=== PATIENT | female | born 1965 ===

== ENCOUNTER 2018-08-26 06:31 | Day surgery (SDC) | payer BC, OTHER ==
[2018-08-25 11:50] VITALS: BMI 24.9
[2018-08-26] MEDS ORDERED: DEXAMETHASONE SOD PHOSPHATE 4 MG/1 ML VIAL ONE ×2 (07:32→09:30)
[2018-08-26] MEDS ORDERED: LIDOCAINE HCL 1%, 10 MG/ML (20ML VIAL) ONE (07:33)
[2018-08-26] MEDS ORDERED: BACITRACIN 15 GM TUBE TOPICAL OINTMENT ONE (07:33)
[2018-08-26] MEDS ORDERED: BUPIVACAINE HCL/PF 0.5% (5MG/ML) 10 ML VIAL ONE (07:33)
[2018-08-26] MEDS ORDERED: MIDAZOLAM HCL 2 MG/2 ML SINGLE DOSE VIAL ONE ×3 (08:07)
[2018-08-26] MEDS ORDERED: ceFAZolin SODIUM 1 GM VIAL IVPB ONE (08:10)
[2018-08-26] MEDS ORDERED: SUCCINYLCHOLINE CHLORIDE 200 MG/10 ML VIAL ONE (08:14)
[2018-08-26] MEDS ORDERED: PROPOFOL 20 ML ONE ×2 (08:14)
[2018-08-26] MEDS ORDERED: LIDOCAINE HCL 1%, 10 MG/ML (50 mL VIAL) IJ ONE ×2 (08:19→08:38)
[2018-08-26] MEDS ORDERED: BUPIVACAINE HCL/PF (5 MG/ML) 30 ML VIAL IJ ONE ×2 (08:19→09:27)
[2018-08-26] MEDS ORDERED: BENZOIN TINCTURE SWABSTICK TP ONE (09:11)
[2018-08-26] MEDS ORDERED: DEXAMETHASONE SOD PHOSPHATE 4 MG/1 ML VIAL NR ONE (09:27)
[2018-08-26] MEDS ORDERED: ceFAZolin SODIUM 1 GM VIAL ONE (09:30)
[2018-08-26] MEDS ORDERED: KETOROLAC TROMETHAMINE 30 MG/1 ML VIAL ONE (09:30)
[2018-08-26] MEDS ORDERED: LIDOCAINE HCL/PF 2% SDV 5ML VIAL ONE (09:30)
[2018-08-26 10:39] VITALS: TEMP 97.5
[2018-08-26 11:43] VITALS: BP 135/77; PULSE 77
[2018-08-26] MEDS ORDERED: ONDANSETRON 4 MG/2 ML VIAL IVPUSH PRN (12:19)
[2018-08-26] MEDS ORDERED: PROMETHAZINE HCL 25 MG/1 ML VIAL IVPB PRN (12:19)
[2018-08-26] MEDS ORDERED: oxyCODONE HCL 5 MG TABLET PO PRN (12:19)
[2018-08-26] MEDS ORDERED: LACTATED RINGERS SOLUTION 1,000 ML IV SCH (12:30)
--- NOTE | 2018-08-26 15:47 | OP ---
Operative Note - Note: Operative Date: 08/26/18 Pre-Operative Diagnosis: Mild Hallux Valgus with tender DME Right, Painful hammer toes 2&5 right, Tender lateral eminenceon tailors bunion right. Operation: 1. Modified Cazares bunionectomy right. 2. Arthroplasty PIPJ 2&5 right. 3. Tailors bunionectomy/exostectomy 5th metatrsal head. 4. Exostecomy 2nd toe right medial aspect at arthroplasty site Findings: Hypertrophic bone and soft tissue. Post-Operative Diagnosis: Same as Pre-op Surgeon: Harrison Le System Operator: Joesph Baltazar Anesthesia: Local, MAC Estimated Blood Loss (mls): 10 Operative Report Dictated: No
--- NOTE | 2018-08-29 16:18 | PATH ---
Surgical Pathology Report Patient Name: ODALIS SALAZAR [facility]. Rec. #: [id number] /Age/Gender: 1965 (Age: 53) / F Account: [id number] Location: [facility] Taken: 08/26/2018 Received: 08/26/2018 Reported: 08/29/2018 Physicians: Harrisno Le DPM Specimen(s) Received A: RIGHT TAILORS BUNION B: RIGHT HAMMER TOE 2ND AND 5TH DIGI C: RIGHT FOOT BUNION Clinical History Right foot bunion, Kaylah bunion right foot, hammertoes second and fifth digits Final Diagnosis A. RIGHT TAILOR'S BUNION, EXCISION: CARTILAGE CAPPED BONE WITH DEGENERATIVE CHANGE. B. RIGHT HAMMER TOES SECOND AND FIFTH DIGITS, EXCISION: BONE WITH FATTY MARROW AND CARTILAGINOUS TISSUE SHOWING DEGENERATIVE CHANGE. SEPARATE SEGMENTS OF ACRAL SKIN WITH NO DIAGNOSTIC ABNORMALITIES. C. RIGHT FOOT BUNION, EXCISION: BONE WITH FATTY MARROW, SYNOVIAL AND CARTILAGINOUS TISSUE SHOWING DEGENERATIVE CHANGE. Electronically Signed Bri Whitfield M.D. Gross Description A. Received in formalin labeled "right Kaylah's bunion," are 3 bateman, irregular portions of bone and soft tissue ranging from 0.4-1.3 cm in greatest dimension. The specimens are submitted in toto in one cassette, following decalcification. B. Received in formalin labeled "right hammertoes second and fifth digits," are 2 bateman, irregular portions of bone averaging 1.1 cm in greatest dimension. Also received within the same container are 2 bateman, unremarkable skin shaves measuring 1.0 and 1.3 cm in greatest dimension. Stamping Machine Operator sections are submitted in one cassette, following decalcification. C. Received in formalin labeled "right foot bunion," are 3 bateman, irregular portions of bone ranging from 1.0-1.5 cm in greatest dimension. Stamping Machine Operator sections are submitted in one cassette, following decalcification. /08/26/201808/26/2018
--- NOTE | 2018-09-08 12:17 | OP ---
$$NEEDS REVIEW $$ - verify dictator DATE OF OPERATION: 08/26/2018 SURGEON: Harrison Le MD NURSE EPIDEMIOLOGIST: Joesph Baltazar DPM PREOPERATIVE DIAGNOSES: Mild hallux valgus with tender dorsomedial eminence of the right foot and painful hammertoes of the 2nd and 5th digits, right foot, and tender lateral eminence of the tailor bunion, right foot. POSTOPERATIVE DIAGNOSES: Mild hallux valgus with tender dorsomedial eminence of the right foot and painful hammertoes of the 2nd and 5th digits, right foot, and tender lateral eminence of the tailor bunion, right foot. PROCEDURES: 1. Modified Cuevas bunionectomy, right. 2. Arthroplasty of the proximal interphalangeal joint of the 2nd and 5th digits, right foot. 3. Tailor bunionectomy and exostectomy of the 5th metatarsal head, right foot. 4. Exostectomy of the 2nd toe, right medial aspect at the arthroplasty site. ANESTHESIA: Local with MAC. HEMOSTASIS: Right ankle tourniquet at 250 mmHg and electrocautery. ESTIMATED BLOOD LOSS: Less than 2 mL. COMPLICATIONS: None. CONDITION OF THE PATIENT: Stable. MATERIALS USED: Vicryl sutures 2-0, 3-0 and 4-0; 4-0 nylon suture; and postoperative dressing such as Betadine-soaked Adaptic, 4 x 4, sterile gauze, Felicia and Howard bandage. DESCRIPTION: The patient was brought to the operating room and placed on the operating table in a supine position. After IV sedation was obtained a local infiltrative block was then administered utilizing a 1:1 mixture of 1% lidocaine plain and 0.5% Marcaine plain. A total of 20 mL was injected throughout the surgical site, right foot. The right foot was then scrubbed, prepped and draped in the usual aseptic fashion. Upon exsanguination of the right foot with an Esmarch bandage and previous placement of the padding at the right ankle the pneumatic ankle tourniquet was then inflated to 250 mmHg. Attention was first directed to the dorsomedial aspect of the 1st metatarsophalangeal joint of the right foot where a linear incision was made. The incision was then deepened through the subcutaneous tissue using sharp and blunt dissection. Care was taken to identify and retract all vital and neurovascular structures. All bleeders were then cauterized as necessary. At this time a linear incision was then made through the 1st metatarsophalangeal joint capsule at the dorsal aspect of the 1st metatarsophalangeal joint. The periosteal and capsular structures were then carefully dissected free of its osseous attachments and reflected medially and laterally, thus exposing the head of the 1st metatarsal at the operative site. The head was noted to be hypertrophied on its dorsal and medial aspects and mild degeneration of the medial cartilage was noted. Next utilizing a sagittal bone saw the medial prominence was resected and passed from the operative field, thus correcting the bunion deformity and all the rough edges were smoothened using power bur and the surgical site was irrigated with copious amount of normal saline. The motion at the 1st metatarsophalangeal joint was assessed and noted to be adequate with dorsiflexion and plantarflexion. At this time the capsular and subcutaneous tissue was sutured using 2-0, 3-0 and 4-0 Vicryl sutures and skin was closed using 5-0 Vicryl suture in the subcuticular fashion. Mastisol and Steri-Strips applied to the surgical site. Next attention was directed to the 2nd digit of the right foot where 2 converging incisions were made on the dorsal aspect of the proximal interphalangeal joint. The incisions were deepened through the subcutaneous tissue with care being taken to identify and retract all vital neural and vascular structures. All bleeders were then cauterized and ligated as necessary. At this time a transverse tenotomy and capsulotomy were then performed to the proximal interphalangeal joint of the 2nd digit of the right foot. The head of the proximal phalanx was then freed from its capsular and ligamentous attachments. Utilizing a sagittal saw the head of the proximal phalanx was then resected and passed from the operative field. The correction of the deformity was assessed and at this time noted to be fully reduced. The incision at the 2nd digit was then flushed with copious amount of normal saline. The extensor tendon was then reapproximated utilizing 3-0 Vicryl suture and the skin was closed utilizing 4-0 nylon suture in a simple suture fashion. Next attention was directed to the dorsal aspect of the 5th digit of the right foot where 2 converging incisions in an angular fashion were made on the dorsal aspect of the proximal interphalangeal joint. The incisions were then deepened through the subcutaneous tissue with care being taken to identify and retract all vital neural and vascular structures. At this time a transverse tenotomy and capsulotomy were then performed to the proximal interphalangeal joint of the 5th digit of the right foot. The head of the proximal phalanx was then freed from its capsular and ligamentous attachments. Utilizing a bone saw the head of the proximal phalanx was resected and passed from the operative field. Correction of the deformity was assessed at this time, noted to be fully reduced. At this time the incision site was flushed with copious amount of normal saline. The extensor tendon was then reapproximated utilizing 3-0 Vicryl suture and the skin was closed utilizing 4-0 nylon suture in a simple suture fashion. At this time attention was brought to the dorsolateral aspect of the 5th metatarsal head with an enlarged dorsolateral eminence. Using a No. 15 blade a linear incision was made on the dorsolateral aspect of the 5th tailor bunion site. The incision was then deepened through the subcutaneous tissue. The periosteal and capsular structures were then carefully dissected and free from its osseous attachments, reflected medially and laterally, this exposing the head of the 5th metatarsal to the operative site. At this time using a sagittal saw the dorsolateral eminence was resected and passed from the operative field and tailor bunionectomy and exostectomy were performed. All the rough edges were smoothened using power bur and the incision site was irrigated with copious amount of normal saline. All the capsular and subcutaneous structures were sutured using 3-0 and 4-0 Vicryl suture and the skin was closed using 4-0 nylon suture. At this time postoperative injection such as 10 mL of an 8:2 mixture of 0.5% Marcaine plain and dexamethasone 4 mg was injected throughout the surgical sites. A postoperative dressing was applied to the right foot such as Betadine-soaked Adaptic, 4 x 4, sterile gauze, Felicia and Howard bandage. The right ankle tourniquet was then deflated at this time and immediate hyperemia was noted to all digits of the right foot. The patient tolerated the procedure and anesthesia well and was transferred to the postanesthesia care unit with vital signs stable and vascular status intact to the right lower extremity. Following a period of postoperative monitoring the patient will be discharged home with accompaniment and was already given the instructions, prescriptions, surgical shoe and date of her followup appointment. SANDRA Mabry/[id number]
== END 2018-08-26 12:30 | disposition home or self-care (01) ==
LOC: JASU-SURG 06:31
PROVIDERS: ATTEND Podiatrist Foot Surgery
PROC: 0SRP0JZ Replacement of Right Toe Phalangeal Joint with Synthetic Substitute, Open Approach (ICD-10-PCS; 2018-08-26)
PROC: 0QBQ0ZZ Excision of Right Toe Phalanx, Open Approach (ICD-10-PCS; 2018-08-26)
PROC: 0QBQ0ZZ Excision of Right Toe Phalanx, Open Approach (ICD-10-PCS; principal; 2018-08-26 08:00)
PROC: 0QBN0ZZ Excision of Right Metatarsal, Open Approach (ICD-10-PCS; 2018-08-26 08:00)
DX: M20.41 Other hammer toe(s) (acquired), right foot (principal); M20.11 Hallux valgus (acquired), right foot; M21.611 Bunion of right foot
CPT/HCPCS: 73630-TC-RT-FY; 88304-TC; 88311-TC; 94760